=== PATIENT | male | born 1960 | race Caucasian/White ===

== ENCOUNTER 2023-06-06 15:15 | Emergency (ER) | payer OTHER, SELFPAY ==
[2023-06-06 15:26] VITALS: BP 135/66; PULSE 46; RESP 22; TEMP 36.6; O2SAT 100
--- NOTE | 2023-06-06 15:37 | ED.EAR ---
HPI - Ear Problem General Chief complaint: Ear Stated complaint: Congestion/Ear Pain/Shortness of Breath Time Seen by Provider: 06/06/23 15:53 Source: patient and RN notes reviewed Mode of arrival: ambulatory Limitations: no limitations History of Present Illness HPI Narrative: 8-year-old male presents with concern left ear pain, left nasal congestion. He reports he has had nasal congestion for little over a week, pressure is getting worse and now as pressure and pain in his left ear. He has been taking decongestants without relief. He denies drainage from the ear. Reports decreased hearing MD Complaint: ear pain Related Data Home Medications Medication Instructions Recorded Confirmed amlodipine 10 mg tablet mg 06/06/23 atorvastatin 40 mg tablet mg 06/06/23 hydroxyzine HCl 50 mg tablet mg 06/06/23 sildenafil 50 mg tablet mg 06/06/23 valsartan 80 mg tablet mg 06/06/23 Allergies Allergy/AdvReac Type Severity Reaction Status Date / Time No Known Allergies Allergy Verified 06/06/23 15:32 Review of Systems Review of Systems: CONSTITUTIONAL: Denies malaise, chills, sweats, or fever. EYES: Denies visual changes, redness, or discharge. ENT: Reports rhinorrhea, congestion, sinus pain. Reports ear pain CARDIOVASCULAR: Denies chest pain, palpitations, or edema. RESPIRATORY: Denies cough. Denies dyspnea. GASTROINTESTINAL: Denies abdominal pain, nausea, vomiting, diarrhea SKIN: Denies rash or itching. MUSCULOSKELETAL: Denies myalgia. NEUROLOGIC: Reports headache. All systems reviewed & are unremarkable except as noted in HPI and below PMFSH Comments At time of signature, agree with nursing past medical, surgical, social and family history. There is no relevant family history pertinent to the presenting complaint Exam Narrative: GENERAL: Well-appearing, well-nourished, and in no acute distress. HEAD: Normocephalic EYES: PERRLA, conjunctivae clear ENT: Nares clear, turbinates edematous, sinus tenderness. Mucous membranes moist. Right tM pearly hat[place] with dull light reflex, left TM erythematous; no tragal tenderness. Oropharynx not erythematous without lesions. Tonsils not enlarged and without exudate, no drooling, no hoarseness, no trismus, uvula midline. NECK: Supple. No lymphadenopathy CHEST: Clear to auscultation, breath sounds equal. No wheezing, rhonchi, rales, or stridor. No respiratory distress, speaks in full sentences. HEART: Regular rate and rhythm. No murmur heard. SKIN: Warm, dry, no rash. NEURO: Alert and oriented x3. PSYCH: Normal mood and affect Course Course Emergency Course: Patient is aware of diagnosis, understands and agrees to treatment plan. Anticipatory guidance given. Patient agrees to follow-up as directed and is aware of reasons to seek care at the emergency department. Portions of this record may have been created with voice recognition software Level of Care: Express Care Visit Vital Signs Vital signs: Vital Signs Temperature 97.9 F 06/06/23 15:26 Pulse Rate 46 L 06/06/23 15:26 Respiratory Rate 22 H 06/06/23 15:26 Blood Pressure 135/66 06/06/23 15:26 Pulse Oximetry 100 06/06/23 15:26 Oxygen Delivery Room Air 06/06/23 15:26 Temperature 97.9 F 06/06/23 15:26 Pulse Rate 46 L 06/06/23 15:26 Respiratory Rate 22 H 06/06/23 15:26 Blood Pressure 135/66 06/06/23 15:26 Pulse Oximetry 100 06/06/23 15:26 Oxygen Delivery Room Air 06/06/23 15:26 Reviewed. Medical Decision Making MDM Narrative Medical decision making narrative: Differential diagnosis considered: Brand virus, strep pharyngitis, allergic rhinitis, upper respiratory tract infection, sinusitis, rhinosinusitis, nasopharyngitis. viral pharyngitis, otitis media, otitis externa, otitis effusion, cerumen impaction, foreign body. Exam findings show no acute concerns or changes; patient is non-toxic appearing and is in no distress. Patient is appropriate for outpatient treatment
== END 2023-06-06 16:09 | disposition home or self-care (01) ==
PROVIDERS: Emergency Provider Nurse Practitioner; PCP Nurse Practitioner Family
DX: H66.90 Otitis media, unspecified, unspecified ear (principal); Z79.899 Other long term (current) drug therapy
CPT/HCPCS: 99213; G0463